=== PATIENT | female | born 1980 | race Caucasian/White ===

== ENCOUNTER 2017-01-05 09:49 | Outpatient (CLI) | payer BC, OTHER ==
[~2017-01-05 09:49] MED LIST: ALPR0.5T PO; ATOR20TA PO; LOSA50TA3 PO; PANT40TA2 PO
[2017-01-05 10:50] LABS: BASOPHILS % (AUTO) 0.4 % (0.0-2.0); EOSINOPHILS # (AUTO) 0.1 K/uL (0.0-0.7); HEMATOCRIT 40.2 % (37-47); HEMOGLOBIN 13.7 G/DL (12.0-16.0); LYMPHOCYTES # (AUTO) 2.2 K/UL (0.8-4.8); LYMPHOCYTES % (AUTO) 34.9 % (20.5-51.5); MEAN CORPUSCULAR HEMOGLOBIN 29.8 UUG (27.0-31.0); MEAN CORPUSCULAR HGB CONC 34 g/dL (32.0-37.0); MEAN CORPUSCULAR VOLUME 87.9 FL (81.0-99.0); MONOCYTES # (AUTO) 0.4 K/UL (0.1-1.30); MONOCYTES % (AUTO) 6.3 % (0.0-11.0); NEUTROPHILS # (AUTO) 3.6 K/UL (1.8-8.9); NEUTROPHILS % (AUTO) 57.4 % (38.5-71.5); PLATELET COUNT (AUTO) 232 K/UL (150-450); RED BLOOD CELL COUNT(AUTO) 4.58 MIL/UL (4.2-5.4); WHITE BLOOD COUNT (AUTO) 6.3 K/UL (4.0-11.2)
[2017-01-05 10:54] LABS: THYROID STIMULATING HORMONE 1.439 mIU/mL (0.358-3.740)
[2017-01-05 11:13] LABS: BILIRUBIN,TOTAL 0.5 mg/dL (0.2-1.0); CREATININE 0.8 mg/dL (0.6-1.3); POTASSIUM 3.7 mmol/L (3.5-5.1); TOTAL PROTEIN, SERUM 7.9 g/dL (6.4-8.2); URIC ACID 5.8 mg/dL (2.6-6.0)
[2017-01-05 11:44] LABS: *BILIRUBIN,URIN NEGATIVE (NEGATIVE); *BLOOD, URINE NEGATIVE (NEGATIVE); *CLARITY,URINE CLEAR (CLEAR); *COLOR,URINE YELLOW (YELLOW); *KETONES,URINE NEGATIVE (NEGATIVE); *PROTEIN,URINE NEGATIVE (NEGATIVE); *UROBILINOGEN,URINE 0.2 E.U./dl (NORMAL); LEUKOCYTE ESTERASE ,URINE NEGATIVE (NEGATIVE); NITRITE, URINE NEGATIVE (NEGATIVE); UGLUCOSE NEGATIVE (NEGATIVE)
[2017-01-05 12:05] LABS: BACTERIA,URINE NONE SEEN /HPF (NONE SEEN); RBC,URINE NONE SEEN /HPF (0-3); SQUAMOUS EPITHELIAL CELL,UR FEW /HPF (NONE SEEN); WBC,URINE NONE SEEN /HPF (0-3)
== END 2017-01-05 23:59 | disposition home or self-care (01) ==
LOC: LAB 09:49
PROVIDERS: ATTEND Internal Medicine
DX: Z00.01 Encounter for general adult medical examination with abnormal findings (principal); E78.5 Hyperlipidemia, unspecified; R79.89 Other specified abnormal findings of blood chemistry
CPT/HCPCS: 36415; 82306; 82746; 83550; 84443; 84550; 85025

== ENCOUNTER 2017-03-13 09:47 | Inpatient (IN) | payer BC, OTHER ==
[~2017-03-13] VITALS: Ht 167.6 cm; Wt 98.9 kg
[2017-03-13] MEDS ORDERED: SERT50TA PO (10:04)
[2017-03-13 10:15] LABS: BASOPHILS % (AUTO) 0.3 % (0.0-2.0); EOSINOPHILS # (AUTO) 0.1 K/uL (0.0-0.7); EOSINOPHILS % (AUTO) 0.6 % (0.0-7.0); HEMATOCRIT 37.6 % (37-47); HEMOGLOBIN 12.8 G/DL (12.0-16.0); LYMPHOCYTES % (AUTO) 22.1 % (20.5-51.5); MEAN CORPUSCULAR HEMOGLOBIN 29.9 UUG (27.0-31.0); MEAN CORPUSCULAR HGB CONC 34 g/dL (32.0-37.0); MEAN CORPUSCULAR VOLUME 87.7 FL (81.0-99.0); MONOCYTES # (AUTO) 0.4 K/UL (0.1-1.30); MONOCYTES % (AUTO) 4.8 % (0.0-11.0); NEUTROPHILS # (AUTO) 6.6 K/UL (1.8-8.9); NEUTROPHILS % (AUTO) 72.2 % (38.5-71.5); PLATELET COUNT (AUTO) 224 K/UL (150-450); RED BLOOD CELL COUNT(AUTO) 4.29 MIL/UL (4.2-5.4); WHITE BLOOD COUNT (AUTO) 9.1 K/UL (4.0-11.2)
[2017-03-13 10:21] LABS: *BILIRUBIN,URIN 1+ (NEGATIVE); *BLOOD, URINE Trace-intact (NEGATIVE); *CLARITY,URINE CLOUDY (CLEAR); *COLOR,URINE YELLOW (YELLOW); *KETONES,URINE NEGATIVE (NEGATIVE); *PROTEIN,URINE 1+ (NEGATIVE); LEUKOCYTE ESTERASE ,URINE NEGATIVE (NEGATIVE); NITRITE, URINE NEGATIVE (NEGATIVE); PH,URINE 6.5 (5.0-8.0); UGLUCOSE NEGATIVE (NEGATIVE)
[2017-03-13 10:28] LABS: CREATININE 0.8 mg/dL (0.6-1.3); POTASSIUM 3.3 mmol/L (3.5-5.1)
[2017-03-13 10:30] LABS: BACTERIA,URINE FEW /HPF (NONE SEEN)
[2017-03-13 10:31] LABS: MUCUS,URINE MODERATE /LPF (0-FEW); SQUAMOUS EPITHELIAL CELL,UR MODERATE /HPF (NONE SEEN)
[2017-03-13 10:34] LABS: BILIRUBIN,DIRECT 0.1 mg/dL (0.0-0.2); BILIRUBIN,TOTAL 0.6 mg/dL (0.2-1.0); TOTAL PROTEIN, SERUM 7.7 g/dL (6.4-8.2)
[2017-03-13 11:50] VITALS: BP 123/82
[2017-03-13 15:35] VITALS: BP 116/64
[2017-03-13 20:32] VITALS: BP 116/75
[2017-03-14 04:00] VITALS: BP 126/74
[2017-03-14 06:53] LABS: BASOPHILS % (AUTO) 0.5 % (0.0-2.0); EOSINOPHILS # (AUTO) 0.1 K/uL (0.0-0.7); HEMATOCRIT 34.3 % (37-47); HEMOGLOBIN 11.9 G/DL (12.0-16.0); LYMPHOCYTES # (AUTO) 1.8 K/UL (0.8-4.8); LYMPHOCYTES % (AUTO) 27.9 % (20.5-51.5); MEAN CORPUSCULAR HEMOGLOBIN 30.5 UUG (27.0-31.0); MEAN CORPUSCULAR HGB CONC 35 g/dL (32.0-37.0); MEAN CORPUSCULAR VOLUME 87.9 FL (81.0-99.0); MONOCYTES # (AUTO) 0.3 K/UL (0.1-1.30); MONOCYTES % (AUTO) 5.4 % (0.0-11.0); NEUTROPHILS # (AUTO) 4.2 K/UL (1.8-8.9); NEUTROPHILS % (AUTO) 65.2 % (38.5-71.5); PLATELET COUNT (AUTO) 209 K/UL (150-450); RED BLOOD CELL COUNT(AUTO) 3.91 MIL/UL (4.2-5.4); WHITE BLOOD COUNT (AUTO) 6.4 K/UL (4.0-11.2)
[2017-03-14 07:14] LABS: BILIRUBIN,TOTAL 0.6 mg/dL (0.2-1.0); CREATININE 0.9 mg/dL (0.6-1.3); MAGNESIUM 1.7 mg/dL (1.8-2.4); PHOSPHOROUS 3.5 mg/dL (2.5-4.9); POTASSIUM 3.4 mmol/L (3.5-5.1); TOTAL PROTEIN, SERUM 6.7 g/dL (6.4-8.2)
[2017-03-14 07:18] LABS: THYROID STIMULATING HORMONE 1.535 mIU/mL (0.358-3.740)
[2017-03-14 08:38] VITALS: BP 133/85
[2017-03-14 16:19] VITALS: BP 111/67
[2017-03-14 18:10] VITALS: BP 113/72
[2017-03-14 18:50] VITALS: BP 119/75
[2017-03-14 20:36] VITALS: BP 110/69
[2017-03-15] VITALS: BP 133/82
[2017-03-15 05:55] VITALS: BP 115/76
[2017-03-15 07:55] LABS: BASOPHILS % (AUTO) 0.4 % (0.0-2.0); EOSINOPHILS % (AUTO) 0.4 % (0.0-7.0); HEMATOCRIT 35.2 % (37-47); HEMOGLOBIN 12.2 G/DL (12.0-16.0); LYMPHOCYTES # (AUTO) 1.7 K/UL (0.8-4.8); LYMPHOCYTES % (AUTO) 22.1 % (20.5-51.5); MEAN CORPUSCULAR HEMOGLOBIN 30.6 UUG (27.0-31.0); MEAN CORPUSCULAR HGB CONC 35 g/dL (32.0-37.0); MEAN CORPUSCULAR VOLUME 88.5 FL (81.0-99.0); MONOCYTES # (AUTO) 0.5 K/UL (0.1-1.30); NEUTROPHILS # (AUTO) 5.5 K/UL (1.8-8.9); NEUTROPHILS % (AUTO) 71.1 % (38.5-71.5); PLATELET COUNT (AUTO) 235 K/UL (150-450); RED BLOOD CELL COUNT(AUTO) 3.98 MIL/UL (4.2-5.4); WHITE BLOOD COUNT (AUTO) 7.7 K/UL (4.0-11.2)
[2017-03-15 08:04] LABS: BILIRUBIN,TOTAL 0.4 mg/dL (0.2-1.0); CREATININE 0.8 mg/dL (0.6-1.3); PHOSPHOROUS 3.1 mg/dL (2.5-4.9); POTASSIUM 3.6 mmol/L (3.5-5.1)
[2017-03-15 11:43] VITALS: BP 111/67
[2017-03-15 16:20] VITALS: BP 133/83
[2017-03-15 20:00] VITALS: BP 141/79
[2017-03-16 05:55] VITALS: BP 105/76
[2017-03-16 07:47] LABS: BASOPHILS % (AUTO) 0.5 % (0.0-2.0); EOSINOPHILS % (AUTO) 0.7 % (0.0-7.0); HEMATOCRIT 33.4 % (37-47); HEMOGLOBIN 11.6 G/DL (12.0-16.0); LYMPHOCYTES # (AUTO) 1.8 K/UL (0.8-4.8); LYMPHOCYTES % (AUTO) 33.3 % (20.5-51.5); MEAN CORPUSCULAR HEMOGLOBIN 30.9 UUG (27.0-31.0); MEAN CORPUSCULAR HGB CONC 35 g/dL (32.0-37.0); MEAN CORPUSCULAR VOLUME 88.9 FL (81.0-99.0); MONOCYTES # (AUTO) 0.3 K/UL (0.1-1.30); MONOCYTES % (AUTO) 6.2 % (0.0-11.0); NEUTROPHILS # (AUTO) 3.4 K/UL (1.8-8.9); NEUTROPHILS % (AUTO) 59.3 % (38.5-71.5); PLATELET COUNT (AUTO) 209 K/UL (150-450); RED BLOOD CELL COUNT(AUTO) 3.75 MIL/UL (4.2-5.4); WHITE BLOOD COUNT (AUTO) 5.5 K/UL (4.0-11.2)
[2017-03-16 08:01] LABS: BILIRUBIN,TOTAL 0.4 mg/dL (0.2-1.0); CREATININE 0.8 mg/dL (0.6-1.3); PHOSPHOROUS 3.4 mg/dL (2.5-4.9); POTASSIUM 3.5 mmol/L (3.5-5.1); TOTAL PROTEIN, SERUM 6.7 g/dL (6.4-8.2)
[2017-03-16 08:08] LABS: MAGNESIUM 1.7 mg/dL (1.8-2.4)
[2017-03-16 13:00] VITALS: BP 107/68
[2017-03-16 16:08] VITALS: BP 113/77
[2017-03-16 20:00] VITALS: BP 106/68
[2017-03-17 06:45] VITALS: BP 114/74
[2017-03-17 07:16] LABS: BASOPHILS % (AUTO) 0.4 % (0.0-2.0); EOSINOPHILS # (AUTO) 0.1 K/uL (0.0-0.7); EOSINOPHILS % (AUTO) 1.2 % (0.0-7.0); HEMATOCRIT 35.1 % (37-47); HEMOGLOBIN 11.8 G/DL (12.0-16.0); LYMPHOCYTES # (AUTO) 2.1 K/UL (0.8-4.8); MEAN CORPUSCULAR HGB CONC 34 g/dL (32.0-37.0); MEAN CORPUSCULAR VOLUME 89.2 FL (81.0-99.0); MONOCYTES # (AUTO) 0.4 K/UL (0.1-1.30); MONOCYTES % (AUTO) 6.2 % (0.0-11.0); NEUTROPHILS # (AUTO) 3.5 K/UL (1.8-8.9); NEUTROPHILS % (AUTO) 58.2 % (38.5-71.5); PLATELET COUNT (AUTO) 242 K/UL (150-450); RED BLOOD CELL COUNT(AUTO) 3.94 MIL/UL (4.2-5.4); WHITE BLOOD COUNT (AUTO) 6.1 K/UL (4.0-11.2)
[2017-03-17 08:16] LABS: BILIRUBIN,TOTAL 0.5 mg/dL (0.2-1.0); CREATININE 0.8 mg/dL (0.6-1.3); MAGNESIUM 1.8 mg/dL (1.8-2.4); PHOSPHOROUS 3.9 mg/dL (2.5-4.9); POTASSIUM 3.6 mmol/L (3.5-5.1); TOTAL PROTEIN, SERUM 6.8 g/dL (6.4-8.2)
[2017-03-17 11:06] VITALS: BP 114/66
[2017-03-17 15:33] VITALS: BP 112/70
[2017-03-17 20:00] VITALS: BP 127/69
[2017-03-18 04:00] VITALS: BP 133/85
[2017-03-18 11:36] VITALS: BP 120/72
[2017-03-18 15:27] VITALS: BP 113/70
[2017-03-18 20:27] VITALS: BP 114/83
[2017-03-19 06:00] VITALS: BP 135/88
[2017-03-19 06:34] LABS: BASOPHILS % (AUTO) 0.3 % (0.0-2.0); EOSINOPHILS # (AUTO) 0.1 K/uL (0.0-0.7); HEMOGLOBIN 12.2 G/DL (12.0-16.0); LYMPHOCYTES # (AUTO) 1.8 K/UL (0.8-4.8); LYMPHOCYTES % (AUTO) 33.2 % (20.5-51.5); MEAN CORPUSCULAR HEMOGLOBIN 30.1 UUG (27.0-31.0); MEAN CORPUSCULAR HGB CONC 34 g/dL (32.0-37.0); MEAN CORPUSCULAR VOLUME 88.8 FL (81.0-99.0); MONOCYTES # (AUTO) 0.4 K/UL (0.1-1.30); MONOCYTES % (AUTO) 7.1 % (0.0-11.0); NEUTROPHILS # (AUTO) 3.2 K/UL (1.8-8.9); NEUTROPHILS % (AUTO) 57.4 % (38.5-71.5); PLATELET COUNT (AUTO) 265 K/UL (150-450); RED BLOOD CELL COUNT(AUTO) 4.05 MIL/UL (4.2-5.4); WHITE BLOOD COUNT (AUTO) 5.5 K/UL (4.0-11.2)
[2017-03-19 07:09] LABS: BILIRUBIN,TOTAL 0.6 mg/dL (0.2-1.0); CREATININE 0.9 mg/dL (0.6-1.3); MAGNESIUM 1.9 mg/dL (1.8-2.4); PHOSPHOROUS 4.3 mg/dL (2.5-4.9); POTASSIUM 3.9 mmol/L (3.5-5.1); TOTAL PROTEIN, SERUM 7.2 g/dL (6.4-8.2)
[2017-03-19 11:33] VITALS: BP 125/82
[2017-03-19] MEDS ORDERED: OXYC-133 PO (12:21)
[2017-03-19] MEDS ORDERED: SIME80TA45 PO (12:21)
[2017-03-19] MEDS ORDERED: ONDA4TAB5 PO (12:44)
== END 2017-03-19 12:58 | disposition home or self-care (01) | DRG 419 ==
LOC: ER 09:47 → MED 11:21
PROVIDERS: ADMIT Internal Medicine; ATTEND Internal Medicine
PROC: 0DB98ZX Excision of Duodenum, Via Natural or Artificial Opening Endoscopic, Diagnostic (ICD-10-PCS; 2017-03-14)
PROC: 0DB78ZX Excision of Stomach, Pylorus, Via Natural or Artificial Opening Endoscopic, Diagnostic (ICD-10-PCS; 2017-03-14)
PROC: 0FT44ZZ Resection of Gallbladder, Percutaneous Endoscopic Approach (ICD-10-PCS; principal; 2017-03-14 07:15)
PROC: 0FB04ZX Excision of Liver, Percutaneous Endoscopic Approach, Diagnostic (ICD-10-PCS; principal; 2017-03-14 07:15)
DX: K80.12 Calculus of gallbladder with acute and chronic cholecystitis without obstruction (principal); K76.0 Fatty (change of) liver, not elsewhere classified; E88.09 Other disorders of plasma-protein metabolism, not elsewhere classified; K29.60 Other gastritis without bleeding; K44.9 Diaphragmatic hernia without obstruction or gangrene; E66.01 Morbid (severe) obesity due to excess calories; R16.2 Hepatomegaly with splenomegaly, not elsewhere classified; B96.81 Helicobacter pylori [H. pylori] as the cause of diseases classified elsewhere; K40.90 Unilateral inguinal hernia, without obstruction or gangrene, not specified as recurrent; K21.0 Gastro-esophageal reflux disease with esophagitis; E87.6 Hypokalemia; M51.14 Intervertebral disc disorders with radiculopathy, thoracic region; F41.9 Anxiety disorder, unspecified; Z68.35 Body mass index [BMI] 35.0-35.9, adult; K58.0 Irritable bowel syndrome with diarrhea; K57.90 Diverticulosis of intestine, part unspecified, without perforation or abscess without bleeding; K56.41 Fecal impaction; Z82.49 Family history of ischemic heart disease and other diseases of the circulatory system; Z79.899 Other long term (current) drug therapy; I10 Essential (primary) hypertension
CPT/HCPCS: 36415; 71010; 83605; 83690; 83735; 84100; 84443; 84703; 85025; 85730; 87040; 93005; A4217; A4663; J0330; J0690; J1100; J1170; J1200; J1450; J1885; J1956; J2060; J2270; J2405; J2543; J2710; J3010; J3475; J3480; J3490; J7030; J7050; J7120; L8699; Q9967

== ENCOUNTER 2017-04-11 11:14 | Outpatient (CLI) | payer BC, OTHER ==
[~2017-04-11 11:14] MED LIST changes: -ALPR0.5T PO; -ATOR20TA PO; +ONDA4TAB5 PO; +OXYC-133 PO; +SERT50TA PO; +SIME80TA45 PO
[2017-04-11 11:59] LABS: BASOPHILS % (AUTO) 0.7 % (0.0-2.0); EOSINOPHILS # (AUTO) 0.1 K/uL (0.0-0.7); EOSINOPHILS % (AUTO) 0.9 % (0.0-7.0); HEMATOCRIT 40.4 % (37-47); HEMOGLOBIN 13.3 G/DL (12.0-16.0); LYMPHOCYTES # (AUTO) 2.6 K/UL (0.8-4.8); MEAN CORPUSCULAR HEMOGLOBIN 29.5 UUG (27.0-31.0); MEAN CORPUSCULAR HGB CONC 33 g/dL (32.0-37.0); MEAN CORPUSCULAR VOLUME 89.6 FL (81.0-99.0); MONOCYTES # (AUTO) 0.5 K/UL (0.1-1.30); MONOCYTES % (AUTO) 7.6 % (0.0-11.0); NEUTROPHILS # (AUTO) 3.4 K/UL (1.8-8.9); NEUTROPHILS % (AUTO) 51.8 % (38.5-71.5); PLATELET COUNT (AUTO) 223 K/UL (150-450); RED BLOOD CELL COUNT(AUTO) 4.51 MIL/UL (4.2-5.4); WHITE BLOOD COUNT (AUTO) 6.6 K/UL (4.0-11.2)
[2017-04-11 12:24] LABS: BILIRUBIN,TOTAL 0.4 mg/dL (0.2-1.0); CREATININE 0.7 mg/dL (0.6-1.3); POTASSIUM 4.2 mmol/L (3.5-5.1); TOTAL PROTEIN, SERUM 8.1 g/dL (6.4-8.2)
== END 2017-04-11 23:59 | disposition home or self-care (01) ==
LOC: LAB 11:14
PROVIDERS: ATTEND Surgery
DX: R16.1 Splenomegaly, not elsewhere classified (principal); Z90.49 Acquired absence of other specified parts of digestive tract
CPT/HCPCS: 36415; 76700; 83690; 85025

== ENCOUNTER 2017-06-19 21:53 | Emergency (ER) | payer OTHER ==
[~2017-06-19] VITALS: Ht 167.6 cm; Wt 90.7 kg
--- NOTE | 2017-06-19 22:40 | NUR ---
Patient discharged to home in stable conditon. Written and verbal after care instructions given. Patient verbalizes understanding of instructions.
[2017-06-19 22:48] LABS: BILIRUBIN,DIRECT 0.1 mg/dL (0.0-0.2); BILIRUBIN,TOTAL 0.3 mg/dL (0.2-1.0); TOTAL PROTEIN, SERUM 7.9 g/dL (6.4-8.2)
[2017-06-21 11:48] LABS: HEPATITIS A AB, IgM Negative (Negative); HEPATITIS A AB, TOTAL Negative (Negative); HEPATITIS B SURFACE AB Reactive (.); HEPATITIS B SURFACE AG Negative (Negative)
[2017-06-22 05:06] LABS: HEPATITIS Be ANTIGEN Negative (Negative)
== END 2017-06-19 22:40 | disposition home or self-care (01) ==
LOC: ER 21:54
DX: S61.031A Puncture wound without foreign body of right thumb without damage to nail, initial encounter (principal); I10 Essential (primary) hypertension; Z88.1 Allergy status to other antibiotic agents; K21.9 Gastro-esophageal reflux disease without esophagitis; Z90.49 Acquired absence of other specified parts of digestive tract; W46.0XXA Contact with hypodermic needle, initial encounter; Y92.89 Other specified places as the place of occurrence of the external cause; Y93.89 Activity, other specified; Y99.0 Civilian activity done for income or pay
CPT/HCPCS: 36415; 86704; 86705; 86706; 86708; 86709; 86803; 87340; 87350; 87536; 87806; A4663

== ENCOUNTER 2017-11-14 21:18 | Emergency (ER) | payer BC ==
[~2017-11-14] VITALS: Ht 165.1 cm; Wt 63.5 kg
[~2017-11-14 21:18] MED LIST changes: -ONDA4TAB5 PO; -OXYC-133 PO; -SIME80TA45 PO
--- NOTE | 2017-11-14 21:30 | NUR ---
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 PT STATES SHE TOOK ZOFRAN 4 MG PO AT 1830 TODAY. PT BLOOD SUGAR UPON ARRIVAL WAS 129. NO SOB/CONGESTION NOTED. NO CHEST PAIN NOTED. AAOX4. PT ABLE TO SPEAK IN COMPLETE SENTENCES. SPEECH CLEAR. PT RESPONDS TO VERBAL + TACTILE STIMULI. RESPIRATIONS EVEN + UNLABORED. SA02 99% RA. PT ON MONITOR. NSR. PT RESTING IN BED WAITING FOR MSE. BED IN LOWEST POSITION. WHEELS LOCKED. CALL LIGHT WITHIN REACH. VSS. Addendum: 11/14/17 at 2223 by MARIANNE PT AMBULATES TO ER FROM WORK (2ND FLOOR) ACCOMPANIED BY NURSE EQUIPMENT MONITOR PHOTOTYPESETTING DUE TO FEELINGS OF DIZZINESS, SWEATING, & NAUSEA. PT STATES SHE TOOK ZOFRAN 4 MG PO AT 1830 TODAY. PT BLOOD SUGAR UPON ARRIVAL WAS 129. PT STATES SHE TOOK HER BP AT HOME AROUND 1330 TODAY AND IT WAS 72/40. PT STATES SHE HAS HX OF HTN AND TAKES LOSARTAN 50 MG ONCE A DAY. NO SOB/CONGESTION NOTED. NO CHEST PAIN NOTED. AAOX4. PT ABLE TO SPEAK IN COMPLETE SENTENCES. SPEECH CLEAR. PT RESPONDS TO VERBAL + TACTILE STIMULI. RESPIRATIONS EVEN + UNLABORED. SA02 99% RA. PT ON MONITOR. NSR. PT RESTING IN BED WAITING FOR MSE. BED IN LOWEST POSITION. WHEELS LOCKED. CALL LIGHT WITHIN REACH. VSS.
--- NOTE | 2017-11-14 21:45 | NUR ---
ABILIO CONCEPCION AT BEDSIDE FOR MSE.
--- NOTE | 2017-11-14 21:54 | NUR ---
LAB AT BEDSIDE.
[2017-11-14 22:18] LABS: CREATININE 0.9 mg/dL (0.6-1.3); POTASSIUM 3.8 mmol/L (3.5-5.1)
[2017-11-14 22:20] LABS: EOSINOPHILS % (AUTO) 0.2 % (0.0-7.0); HEMOGLOBIN 12.9 g/dL (10.9-14.3); LYMPHOCYTES # (AUTO) 0.9 K/uL (20.0-40.0); LYMPHOCYTES % (AUTO) 6.9 % (20.5-51.5); MEAN CORPUSCULAR HEMOGLOBIN 30.9 uug (24.7-32.8); MEAN CORPUSCULAR HGB CONC 35 g/dL (32.3-35.6); MEAN CORPUSCULAR VOLUME 88.5 fL (75.5-95.3); MONOCYTES # (AUTO) 0.6 K/uL (2.0-10.0); MONOCYTES % (AUTO) 4.6 % (0.0-11.0); NEUTROPHILS # (AUTO) 11.7 K/uL (1.8-8.9); NEUTROPHILS % (AUTO) 88.3 % (38.5-71.5); PLATELET COUNT (AUTO) 189 K/uL (179-408); RED BLOOD CELL COUNT(AUTO) 4.18 MIL/uL (3.63-4.92); WHITE BLOOD COUNT (AUTO) 13.2 K/uL (3.8-11.8)
[2017-11-14 22:31] LABS: BILIRUBIN,DIRECT 0.2 mg/dL (0.0-0.2); BILIRUBIN,TOTAL 0.8 mg/dL (0.2-1.0); TOTAL PROTEIN, SERUM 7.3 g/dL (6.4-8.2)
--- NOTE | 2017-11-14 22:38 | NUR ---
Patient discharged to home in stable conditon. Written and verbal after care instructions given. Patient verbalizes understanding of instructions. Patient ambulated from ER in steady gait. All belongings taken with patient. VSS.
[2017-11-14 22:40] VITALS: BP 129/78
== END 2017-11-14 22:41 | disposition home or self-care (01) ==
LOC: ER 21:20
DX: R42 Dizziness and giddiness (principal); I10 Essential (primary) hypertension; K21.9 Gastro-esophageal reflux disease without esophagitis; Z88.1 Allergy status to other antibiotic agents; Z90.49 Acquired absence of other specified parts of digestive tract; Z79.899 Other long term (current) drug therapy
CPT/HCPCS: 36415; 70030-TC; 84703; 85025; 85730; 93005; A4663

== ENCOUNTER 2017-12-03 07:47 | Emergency (ER) | payer OTHER ==
[~2017-12-03] VITALS: Ht 167.6 cm; Wt 88.5 kg
[2017-12-03] MEDS ORDERED: PANTOPRAZOLE SOD DR 40 MG TAB (08:02)
--- NOTE | 2017-12-03 08:18 | NUR ---
mse completed, rt index finger needle stick area cleaned with alcohol then bandaid placed to site. pt had labs drawn. pt then d/c'd home, aci given. pt ambulated w/o diff/took all belongings.
[2017-12-03 08:21] VITALS: BP 135/88
[2017-12-05 03:09] LABS: HEPATITIS B SURFACE AB Reactive (.)
== END 2017-12-03 08:22 | disposition home or self-care (01) ==
LOC: ER 07:50
DX: S61.230A Puncture wound without foreign body of right index finger without damage to nail, initial encounter (principal); Z88.8 Allergy status to other drugs, medicaments and biological substances; Z79.899 Other long term (current) drug therapy; W46.0XXA Contact with hypodermic needle, initial encounter; Y93.89 Activity, other specified; Y92.89 Other specified places as the place of occurrence of the external cause; Y99.8 Other external cause status
CPT/HCPCS: 36415; 86704; 86706; 86803; 87806; A4663

== ENCOUNTER → 2018-01-23 | Outpatient (CLI) | payer BC, OTHER ==
[~2018-01-23] MED LIST changes: +PANTOPRAZOLE SOD DR 40 MG TAB
[2018-01-23 08:46] LABS: BASOPHILS % (AUTO) 0.5 % (0.0-2.0); EOSINOPHILS % (AUTO) 0.5 % (0.0-7.0); HEMATOCRIT 39.1 % (31.2-41.9); HEMOGLOBIN 13.6 g/dL (10.9-14.3); LYMPHOCYTES # (AUTO) 3.5 K/uL (20.0-40.0); LYMPHOCYTES % (AUTO) 44.6 % (20.5-51.5); MEAN CORPUSCULAR HEMOGLOBIN 30.5 uug (24.7-32.8); MEAN CORPUSCULAR HGB CONC 35 g/dL (32.3-35.6); MEAN CORPUSCULAR VOLUME 87.9 fL (75.5-95.3); MONOCYTES # (AUTO) 0.5 K/uL (2.0-10.0); MONOCYTES % (AUTO) 6.5 % (0.0-11.0); NEUTROPHILS # (AUTO) 3.7 K/uL (1.8-8.9); NEUTROPHILS % (AUTO) 47.9 % (38.5-71.5); PLATELET COUNT (AUTO) 261 K/uL (179-408); RED BLOOD CELL COUNT(AUTO) 4.45 MIL/uL (3.63-4.92); WHITE BLOOD COUNT (AUTO) 7.8 K/uL (3.8-11.8)
[2018-01-23 08:49] LABS: *BILIRUBIN,URIN NEGATIVE (NEGATIVE); *BLOOD, URINE NEGATIVE (NEGATIVE); *CLARITY,URINE CLEAR (CLEAR); *COLOR,URINE YELLOW (YELLOW); *KETONES,URINE NEGATIVE (NEGATIVE); *PROTEIN,URINE NEGATIVE (NEGATIVE); *UROBILINOGEN,URINE 0.2 E.U./dl (NORMAL); LEUKOCYTE ESTERASE ,URINE NEGATIVE (NEGATIVE); NITRITE, URINE NEGATIVE (NEGATIVE); PH,URINE 5.5 (5.0-8.0); UGLUCOSE NEGATIVE (NEGATIVE)
[2018-01-23 09:07] LABS: THYROID STIMULATING HORMONE 4.339 mIU/mL (0.358-3.740)
[2018-01-23 09:22] LABS: BILIRUBIN,TOTAL 0.9 mg/dL (0.2-1.0); CREATININE 0.9 mg/dL (0.6-1.3); POTASSIUM 4.4 mmol/L (3.5-5.1); TOTAL PROTEIN, SERUM 8.6 g/dL (6.4-8.2)
[2018-01-23 09:33] LABS: BACTERIA,URINE FEW /HPF (NONE SEEN); RBC,URINE 0-3 /HPF (0-3); WBC,URINE 0-3 /HPF (0-3)
[2018-01-23 09:34] LABS: SQUAMOUS EPITHELIAL CELL,UR MODERATE /HPF (NONE SEEN)
== END | disposition home or self-care (01) ==
LOC: LAB 07:49
PROVIDERS: ATTEND Legal Medicine
DX: Z00.00 Encounter for general adult medical examination without abnormal findings (principal)
CPT/HCPCS: 36415; 82306; 82746; 83550; 84443; 85025

== ENCOUNTER 2018-01-27 00:40 | Emergency (ER) | payer BC, OTHER ==
[~2018-01-27] VITALS: Ht 165.1 cm; Wt 83.9 kg
--- NOTE | 2018-01-27 00:50 | NUR ---
PATIENT WAS MSE BY DR DUARTE ROOM 04A. PATIENT A & O X4.
[2018-01-27] MEDS ORDERED: PSEUDOEPHEDRINE HCL 30 MG TABLET PO ONE (01:00)
[2018-01-27] MEDS ORDERED: PSEUDOEPHEDRINE HCL 30 MG TABLET ONE (01:08)
--- NOTE | 2018-01-27 01:13 | NUR ---
Patient discharged to home in stable conditon. Written and verbal after care instructions given. Patient verbalizes understanding of instructions.
[2018-01-27 01:18] VITALS: BP 137/88
== END 2018-01-27 01:20 | disposition home or self-care (01) ==
LOC: ER 00:41
DX: J40 Bronchitis, not specified as acute or chronic (principal); J32.9 Chronic sinusitis, unspecified; J02.9 Acute pharyngitis, unspecified; I10 Essential (primary) hypertension; Z90.49 Acquired absence of other specified parts of digestive tract; Z88.8 Allergy status to other drugs, medicaments and biological substances; Z79.899 Other long term (current) drug therapy
CPT/HCPCS: 99283; A4663

== ENCOUNTER 2018-04-21 18:50 | Emergency (ER) | payer BC, OTHER ==
[~2018-04-21] VITALS: Ht 165.1 cm; Wt 83.9 kg
--- NOTE | 2018-04-21 19:01 | NUR ---
RECEIVED SHIFT REPORT FROM CHARLIE SMYTH. PT SITTING IN BED COMFORTABLY. DENIES PAIN, C/P, SOB, N/V/D, DIZZINESS, HEADACHE. PT'S LEFT EYE IS EDEMATOUS AND RED IN APPEARANCE.
--- NOTE | 2018-04-21 19:07 | NUR ---
ABILIO CONCEPCION AT BEDSIDE FOR PT UPDATE.
--- NOTE | 2018-04-21 19:09 | NUR ---
Patient discharged to home in stable conditon. Written and verbal after care instructions given. Patient verbalizes understanding of instructions.
== END 2018-04-21 19:11 | disposition home or self-care (01) ==
LOC: ER 18:50
DX: Z00.00 Encounter for general adult medical examination without abnormal findings (principal); H57.89 Other specified disorders of eye and adnexa; I10 Essential (primary) hypertension; Z90.49 Acquired absence of other specified parts of digestive tract; Z88.1 Allergy status to other antibiotic agents
CPT/HCPCS: A4663

== ENCOUNTER 2018-12-20 17:58 | Outpatient (CLI) | payer BC, OTHER ==
[2018-12-20 18:27] LABS: *BILIRUBIN,URIN NEGATIVE (NEGATIVE); *COLOR,URINE YELLOW (YELLOW); *KETONES,URINE NEGATIVE (NEGATIVE); *UROBILINOGEN,URINE 0.2 E.U./dl (NORMAL); LEUKOCYTE ESTERASE ,URINE NEGATIVE (NEGATIVE); NITRITE, URINE NEGATIVE (NEGATIVE); UGLUCOSE NEGATIVE (NEGATIVE)
[2018-12-20 18:35] LABS: BASOPHILS % (AUTO) 0.7 % (0.0-2.0); EOSINOPHILS % (AUTO) 0.8 % (0.0-7.0); HEMATOCRIT 40.1 % (31.2-41.9); HEMOGLOBIN 13.7 g/dL (10.9-14.3); LYMPHOCYTES # (AUTO) 2.1 K/uL (20.0-40.0); LYMPHOCYTES % (AUTO) 35.2 % (20.5-51.5); MEAN CORPUSCULAR HEMOGLOBIN 30.4 uug (24.7-32.8); MEAN CORPUSCULAR HGB CONC 34 g/dL (32.3-35.6); MEAN CORPUSCULAR VOLUME 88.6 fL (75.5-95.3); MONOCYTES # (AUTO) 0.4 K/uL (2.0-10.0); MONOCYTES % (AUTO) 6.7 % (0.0-11.0); NEUTROPHILS # (AUTO) 3.4 K/uL (1.8-8.9); NEUTROPHILS % (AUTO) 56.6 % (38.5-71.5); PLATELET COUNT (AUTO) 234 K/uL (179-408); RED BLOOD CELL COUNT(AUTO) 4.52 MIL/uL (3.63-4.92)
[2018-12-20 18:42] LABS: *BLOOD, URINE TRACE (NEGATIVE); *CLARITY,URINE SLIGHTLY HAZY (CLEAR)
[2018-12-20 18:43] LABS: BACTERIA,URINE FEW /HPF (NONE SEEN); MUCUS,URINE MANY /LPF (0-FEW); SQUAMOUS EPITHELIAL CELL,UR MODERATE /HPF (NONE SEEN); WBC,URINE 0-3 /HPF (0-3)
[2018-12-20 19:06] LABS: BILIRUBIN,TOTAL 0.8 mg/dL (0.2-1.0); CREATININE 0.8 mg/dL (0.6-1.3); TOTAL PROTEIN, SERUM 7.9 g/dL (6.4-8.2); URIC ACID 5.1 mg/dL (2.6-6.0)
[2018-12-20 19:28] LABS: POTASSIUM 3.7 mmol/L (3.5-5.1)
[2018-12-20 20:04] LABS: THYROID STIMULATING HORMONE 2.233 mIU/mL (0.358-3.740)
[2018-12-25 12:10] LABS: *VITAMIN D 25-OH VIT D 35 ng/mL (.); *VITAMIN D 25-OH, D2 <1.0 ng/mL (.); *VITAMIN D 25-OH, D3 35 ng/mL (.)
== END 2018-12-20 23:59 | disposition home or self-care (01) ==
LOC: LAB 17:58
PROVIDERS: ATTEND Legal Medicine
DX: Z00.00 Encounter for general adult medical examination without abnormal findings (principal)
CPT/HCPCS: 36415; 83550; 84443; 84550; 85025

== ENCOUNTER 2019-04-08 10:00 | Emergency (ER) | payer BC, OTHER ==
[~2019-04-08] VITALS: Ht 165.1 cm; Wt 81.6 kg
--- NOTE | 2019-04-08 10:14 | NUR ---
Dr Soto is@bedside doing the MSE.
--- NOTE | 2019-04-08 10:27 | NUR ---
Patient discharged to home in stable conditon with brisk steady gait. Written and verbal after care instructions given to patient. Patient verbalizes understanding of instructions.
== END 2019-04-08 10:27 | disposition home or self-care (01) ==
LOC: ER 10:00
DX: J02.9 Acute pharyngitis, unspecified (principal); I10 Essential (primary) hypertension; Z90.49 Acquired absence of other specified parts of digestive tract; Z79.899 Other long term (current) drug therapy
CPT/HCPCS: 36415; 86403; A4663

== ENCOUNTER 2019-05-10 02:19 | Emergency (ER) | payer BC, OTHER ==
[~2019-05-10] VITALS: Ht 167.6 cm; Wt 86.2 kg
--- NOTE | 2019-05-10 02:30 | NUR ---
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 Placed in room 1b.
[2019-05-10] MEDS ORDERED: ONDANSETRON 4 MG/2 ML VIAL IV ONE (02:45)
[2019-05-10] MEDS ORDERED: PANTOPRAZOLE SODIUM 40 MG VIAL IV ONE (02:45)
[2019-05-10] MEDS ORDERED: IV NORMAL SALINE 1000 ML BAG IV ONE ×2 (02:45→04:00)
[2019-05-10] MEDS ORDERED: PANTOPRAZOLE SODIUM 40 MG VIAL ONE (02:46)
[2019-05-10] MEDS ORDERED: ONDANSETRON 4 MG/2 ML VIAL ONE (02:46)
[2019-05-10 02:54] LABS: BASOPHILS % (AUTO) 0.3 % (0.0-2.0); EOSINOPHILS % (AUTO) 0.2 % (0.0-7.0); HEMATOCRIT 42.3 % (31.2-41.9); HEMOGLOBIN 14.5 g/dL (10.9-14.3); LYMPHOCYTES # (AUTO) 1.2 K/uL (20.0-40.0); LYMPHOCYTES % (AUTO) 9.5 % (20.5-51.5); MEAN CORPUSCULAR HEMOGLOBIN 30.2 uug (24.7-32.8); MEAN CORPUSCULAR HGB CONC 34 g/dL (32.3-35.6); MEAN CORPUSCULAR VOLUME 87.8 fL (75.5-95.3); MONOCYTES # (AUTO) 0.5 K/uL (2.0-10.0); MONOCYTES % (AUTO) 3.5 % (0.0-11.0); NEUTROPHILS # (AUTO) 11.2 K/uL (1.8-8.9); NEUTROPHILS % (AUTO) 86.5 % (38.5-71.5); PLATELET COUNT (AUTO) 247 K/uL (179-408); RED BLOOD CELL COUNT(AUTO) 4.82 MIL/uL (3.63-4.92); WHITE BLOOD COUNT (AUTO) 12.9 K/uL (3.8-11.8)
[2019-05-10 02:56] LABS: CREATININE 0.9 mg/dL (0.6-1.3); POTASSIUM 3.1 mmol/L (3.5-5.1)
[2019-05-10 03:01] LABS: BILIRUBIN,DIRECT 0.2 mg/dL (0.0-0.2); BILIRUBIN,TOTAL 0.6 mg/dL (0.2-1.0)
[2019-05-10] MEDS ORDERED: POTASSIUM CHLORIDE 20 MEQ TAB.PRT.SR ONE (03:07)
[2019-05-10] MEDS ORDERED: POTASSIUM CHLORIDE 20 MEQ TAB.PRT.SR PO ONE (03:15)
[2019-05-10] MEDS ORDERED: MAGNESIUM SULFATE/D5W 100 ML ONE (03:54)
[2019-05-10] MEDS: MAGNESIUM SULFATE/D5W 100 ML IV SCH (04:00)
--- NOTE | 2019-05-10 04:04 | NUR ---
Patient resting comfortable on gurny with no distress noted.
--- NOTE | 2019-05-10 06:00 | NUR ---
Patient states "I feel better now."
--- NOTE | 2019-05-10 06:40 | NUR ---
IV removed. Catheter intact and site benign. Pressure and 4x4 gauze applied to site. No bleeding noted.
--- NOTE | 2019-05-10 06:43 | NUR ---
Patient discharged to home in stable conditon. Written and verbal after care instructions given. Patient verbalizes understanding of instructions. Walked out of ER with no distress noted.
[2019-05-10 06:44] VITALS: BP 118/72
== END 2019-05-10 06:44 | disposition home or self-care (01) ==
LOC: ER 02:21
DX: K21.9 Gastro-esophageal reflux disease without esophagitis (principal); R07.9 Chest pain, unspecified; R00.0 Tachycardia, unspecified; E03.9 Hypothyroidism, unspecified; E87.6 Hypokalemia; E83.42 Hypomagnesemia; I10 Essential (primary) hypertension; Z90.49 Acquired absence of other specified parts of digestive tract; Z79.899 Other long term (current) drug therapy
CPT/HCPCS: 36415; 71045; 80048; 80076; 83735; 84443; 84484 ×2; 85025; 85379; 93005 ×2; 96361; 96365; 96375; 99284; C9113; J2405; J3475; 70030-TC; A4663; J7030

== ENCOUNTER 2019-11-03 10:45 | Outpatient (CLI) | payer BC, OTHER ==
[2019-11-03 11:45] LABS: BASOPHILS % (AUTO) 0.3 % (0.0-2.0); EOSINOPHILS # (AUTO) 0.1 K/uL (0.0-0.7); HEMATOCRIT 38.8 % (31.2-41.9); LYMPHOCYTES # (AUTO) 2.2 K/uL (20.0-40.0); LYMPHOCYTES % (AUTO) 32.5 % (20.5-51.5); MEAN CORPUSCULAR HEMOGLOBIN 30.4 uug (24.7-32.8); MEAN CORPUSCULAR HGB CONC 34 g/dL (32.3-35.6); MEAN CORPUSCULAR VOLUME 90.5 fL (75.5-95.3); MONOCYTES # (AUTO) 0.4 K/uL (2.0-10.0); MONOCYTES % (AUTO) 5.7 % (0.0-11.0); NEUTROPHILS % (AUTO) 60.5 % (38.5-71.5); PLATELET COUNT (AUTO) 240 K/uL (179-408); RED BLOOD CELL COUNT(AUTO) 4.29 MIL/uL (3.63-4.92); WHITE BLOOD COUNT (AUTO) 6.7 K/uL (3.8-11.8)
[2019-11-03 12:12] LABS: BILIRUBIN,TOTAL 0.6 mg/dL (0.2-1.0); CREATININE 0.9 mg/dL (0.6-1.3); POTASSIUM 3.9 mmol/L (3.5-5.1); TOTAL PROTEIN, SERUM 7.8 g/dL (6.4-8.2)
[2019-11-03 12:33] LABS: THYROID STIMULATING HORMONE 1.74 mIU/mL (0.358-3.740)
[2019-11-04 08:08] LABS: THYROID PEROXIDASE (TPO) AB <6 IU/mL (0-34)
== END 2019-11-03 23:59 | disposition home or self-care (01) ==
LOC: LAB 10:45
PROVIDERS: ATTEND Legal Medicine
DX: I10 Essential (primary) hypertension (principal); E11.9 Type 2 diabetes mellitus without complications; D64.9 Anemia, unspecified; E03.9 Hypothyroidism, unspecified; E78.00 Pure hypercholesterolemia, unspecified; E55.9 Vitamin D deficiency, unspecified; Z00.00 Encounter for general adult medical examination without abnormal findings
CPT/HCPCS: 36415; 82306; 83550; 84443; 85025

== ENCOUNTER 2020-09-02 14:43 | Outpatient (CLI) | payer BC, OTHER | END 2020-09-02 23:59 | disposition home or self-care (01) | LOC: RAD 14:43 | PROVIDERS: ATTEND Legal Medicine | DX: M71.21 Synovial cyst of popliteal space [Baker], right knee (principal) ==

== ENCOUNTER 2021-06-14 04:18 | Outpatient (CLI) | payer BC, OTHER ==
[2021-06-14 05:18] LABS: HEMATOCRIT 37.7 % (31.2-41.9); MEAN CORPUSCULAR HEMOGLOBIN 30.3 uug (24.7-32.8); MEAN CORPUSCULAR VOLUME 86.8 fL (75.5-95.3); PLATELET COUNT (AUTO) 251 K/uL (179-408)
[2021-06-14 05:42] LABS: BILIRUBIN,TOTAL 0.4 mg/dL (0.2-1.0); CREATININE 1.1 mg/dL (0.6-1.3); POTASSIUM 3.6 mmol/L (3.5-5.1); TOTAL PROTEIN, SERUM 8.3 g/dL (6.4-8.2)
== END 2021-06-14 23:59 | disposition home or self-care (01) ==
LOC: LAB 04:18
PROVIDERS: ATTEND Internal Medicine Gastroenterology
DX: K21.9 Gastro-esophageal reflux disease without esophagitis (principal); A04.8 Other specified bacterial intestinal infections
CPT/HCPCS: 36415; 85025

== ENCOUNTER 2021-06-17 06:35 | Outpatient (CLI) | payer BC, OTHER | END 2021-06-17 23:59 | disposition home or self-care (01) | LOC: LAB 06:35 | PROVIDERS: ATTEND Internal Medicine Gastroenterology | DX: Z01.812 Encounter for preprocedural laboratory examination (principal); Z20.822 Contact with and (suspected) exposure to COVID-19 ==

== ENCOUNTER 2021-06-20 12:00 | Day surgery (SDC) | payer BC, OTHER ==
[2021-06-20] MEDS ORDERED: LIDOCAINE-MPF 2% 5 ML VIAL IJ ONE (12:01)
[2021-06-20] MEDS ORDERED: PROPOFOL 200 MG/20 ML BOTTLE IV ONE (12:01)
[2021-06-20] MEDS ORDERED: PROPOFOL 200 MG/20 ML BOTTLE ONE (14:23)
== END 2021-06-20 15:53 | disposition home or self-care (01) ==
LOC: DS 12:00
PROVIDERS: ATTEND Internal Medicine Gastroenterology
DX: R10.13 Epigastric pain (principal); K29.50 Unspecified chronic gastritis without bleeding; K31.89 Other diseases of stomach and duodenum; K21.9 Gastro-esophageal reflux disease without esophagitis; A04.8 Other specified bacterial intestinal infections; I10 Essential (primary) hypertension; J44.9 Chronic obstructive pulmonary disease, unspecified; E78.00 Pure hypercholesterolemia, unspecified; Z80.0 Family history of malignant neoplasm of digestive organs; Z90.49 Acquired absence of other specified parts of digestive tract; Z82.49 Family history of ischemic heart disease and other diseases of the circulatory system; Z79.899 Other long term (current) drug therapy; Z98.890 Other specified postprocedural states
CPT/HCPCS: 36415; 43239; 84702; 85730; 88305; 88313; 88342; J3490; J7120; A4217; A4663

== ENCOUNTER 2021-12-26 10:42 | Outpatient (CLI) | payer BC, OTHER ==
[2021-12-26 11:28] LABS: HEMATOCRIT 37.6 % (31.2-41.9); MEAN CORPUSCULAR HEMOGLOBIN 30.9 uug (24.7-32.8); MEAN CORPUSCULAR VOLUME 86.2 fL (75.5-95.3); PLATELET COUNT (AUTO) 217 K/uL (179-408)
[2021-12-26 11:30] LABS: *BILIRUBIN,URIN NEGATIVE (NEGATIVE); *BLOOD, URINE 1+ (NEGATIVE); *CLARITY,URINE CLEAR (CLEAR); *COLOR,URINE YELLOW (YELLOW); *KETONES,URINE NEGATIVE (NEGATIVE); *UROBILINOGEN,URINE 0.2 E.U./dl (NORMAL); LEUKOCYTE ESTERASE ,URINE NEGATIVE (NEGATIVE); NITRITE, URINE NEGATIVE (NEGATIVE); PH,URINE 5.5 (5.0-8.0); UGLUCOSE NEGATIVE (NEGATIVE)
[2021-12-26 11:54] LABS: BILIRUBIN,TOTAL 0.4 mg/dL (0.2-1.0); CREATININE 0.8 mg/dL (0.6-1.3); POTASSIUM 4.1 mmol/L (3.5-5.1)
[2021-12-26 12:43] LABS: URIC ACID 5.6 mg/dL (2.6-6.0)
[2021-12-26 12:47] LABS: THYROID STIMULATING HORMONE 1.387 mIU/mL (0.358-3.740)
[2021-12-26 13:12] LABS: RBC,URINE 20-50 /HPF (0-3)
[2021-12-26 13:13] LABS: BACTERIA,URINE FEW /HPF (NONE SEEN); SQUAMOUS EPITHELIAL CELL,UR FEW /HPF (NONE SEEN)
--- NOTE | 2021-12-27 08:23 | NUR ---
ALL REPORTS WERE FAXED TO THE PATIENT'S DOCTOR THIS MORNING. A CD WITH ALL THE IMAGES FROM HER X-RAYS, WAS ALSO MADE UPON HER REQUEST. ETTA ALBARRAN
== END 2021-12-26 23:59 | disposition home or self-care (01) ==
LOC: LAB 10:42
PROVIDERS: ATTEND Legal Medicine
DX: Z00.00 Encounter for general adult medical examination without abnormal findings (principal); E78.00 Pure hypercholesterolemia, unspecified; E11.9 Type 2 diabetes mellitus without complications; E03.9 Hypothyroidism, unspecified; E55.9 Vitamin D deficiency, unspecified; D64.9 Anemia, unspecified; M47.816 Spondylosis without myelopathy or radiculopathy, lumbar region; M51.87 Other intervertebral disc disorders, lumbosacral region; M25.551 Pain in right hip; M54.50 Low back pain, unspecified
CPT/HCPCS: 36415; 72110; 73502; 82306; 82746; 83550; 84443; 84550; 85025; 87086

== ENCOUNTER → 2022-09-13 | Outpatient (CLI) | payer BC, OTHER ==
[2022-09-13 09:36] LABS: HEMATOCRIT 39.9 % (31.2-41.9); MEAN CORPUSCULAR HEMOGLOBIN 30.3 uug (24.7-32.8); MEAN CORPUSCULAR VOLUME 88.3 fL (75.5-95.3); PLATELET COUNT (AUTO) 229 K/uL (179-408)
[2022-09-13 10:05] LABS: THYROID STIMULATING HORMONE 1.07 mIU/mL (0.358-3.740)
[2022-09-13 10:17] LABS: BILIRUBIN,TOTAL 0.5 mg/dL (0.2-1.0); CREATININE 0.7 mg/dL (0.6-1.3); POTASSIUM 3.9 mmol/L (3.5-5.1); TOTAL PROTEIN, SERUM 8.3 g/dL (6.4-8.2)
== END | disposition home or self-care (01) ==
LOC: LAB 08:56
PROVIDERS: ATTEND Legal Medicine
DX: Z00.00 Encounter for general adult medical examination without abnormal findings (principal); E11.9 Type 2 diabetes mellitus without complications; E55.9 Vitamin D deficiency, unspecified; E78.00 Pure hypercholesterolemia, unspecified; D64.9 Anemia, unspecified
CPT/HCPCS: 36415; 82306; 82746; 83550; 84443; 84550; 85025

== ENCOUNTER 2024-01-01 02:08 | Emergency (ER) | payer BC, OTHER ==
[~2024-01-01] VITALS: Ht 167.6 cm; Wt 86.2 kg
[2024-01-01] MEDS ORDERED: ONDANSETRON 4 MG/2 ML VIAL IV ONE (02:15)
[2024-01-01] MEDS ORDERED: ONDANSETRON ODT 4 MG TAB.RAPDIS SL ONE (02:15)
[2024-01-01] MEDS ORDERED: ONDANSETRON 4 MG/2 ML VIAL ONE (02:21)
[2024-01-01] MEDS ORDERED: HYDROMORPHONE 1 MG/1 ML DISP.SYRIN ONE (02:21)
[2024-01-01] MEDS ORDERED: LORAZEPAM 2 MG/1 ML VIAL ONE (02:23)
[2024-01-01 02:29] LABS: BASOPHILS # (AUTO) 0.1 K/UL (0.0-0.2); BASOPHILS % (AUTO) 0.7 % (0.0-2.0); EOSINOPHILS % (AUTO) 0.4 % (0.0-7.0); HEMATOCRIT 38.3 % (31.2-41.9); HEMOGLOBIN 13.5 g/dL (10.9-14.3); LYMPHOCYTES % (AUTO) 40.8 % (20.5-51.5); MEAN CORPUSCULAR HEMOGLOBIN 30.3 uug (24.7-32.8); MEAN CORPUSCULAR HGB CONC 35 g/dL (32.3-35.6); MEAN CORPUSCULAR VOLUME 85.9 fL (75.5-95.3); MONOCYTES # (AUTO) 0.8 K/uL (0.1-1.30); MONOCYTES % (AUTO) 8.2 % (0.0-11.0); NEUTROPHILS # (AUTO) 4.9 K/uL (1.8-8.9); NEUTROPHILS % (AUTO) 49.9 % (38.5-71.5); PLATELET COUNT (AUTO) 314 K/uL (179-408); RED BLOOD CELL COUNT(AUTO) 4.46 MIL/uL (3.63-4.92); RED CELL DISTRIBUTION WIDTH 12.1 % (12.3-17.7); WHITE BLOOD COUNT (AUTO) 9.7 K/uL (3.8-11.8)
[2024-01-01] MEDS: IV NORMAL SALINE 1000 ML BAG IV ONE (02:31)
[2024-01-01] MEDS: LORAZEPAM 2 MG/1 ML VIAL IV ONE (02:35)
[2024-01-01] MEDS: HYDROMORPHONE 1 MG/1 ML DISP.SYRIN IV ONE (02:35)
[2024-01-01] MEDS: ONDANSETRON 4 MG/2 ML VIAL IV ONE (02:35)
[2024-01-01 02:42] LABS: CALCIUM 10.3 mg/dL (8.5-10.1); CARBON DIOXIDE 21 mmol/L (21-32); CHLORIDE 101 mmol/L (98-107); CREATININE 0.8 mg/dL (0.6-1.3); GLUCOSE 140 mg/dL (74-106); LIPASE 189 U/L (16-77); SODIUM SERUM 139 mmol/L (136-145); UREA NITROGEN, BLOOD 13 mg/dL (7-18)
[2024-01-01 02:44] LABS: POTASSIUM 2.8 mmol/L (3.5-5.1)
[2024-01-01 02:51] LABS: ALANINE AMINOTRANSFERASE 53 U/L (14-59); ALBUMIN 4.6 g/dL (3.4-5.0); ALKALINE PHOSPHATASE 64 U/L (50-136); ASPARTATE AMINOTRANSFERASE 12 U/L (15-37); BILIRUBIN,DIRECT 0.2 mg/dL (0.0-0.2); TOTAL PROTEIN, SERUM 8.4 g/dL (6.4-8.2)
[2024-01-01 03:06] LABS: PREGNANCY TEST SERUM QUAN < 1 miul/L (0-6)
[2024-01-01] MEDS ORDERED: IV D5W-0.45% NS +20 KCL 1,000 ML IV ONE (03:41)
[2024-01-01] MEDS: IV D5W-0.45% NS +20 KCL 1,000 ML IV ONE (03:42)
[2024-01-01 06:10] VITALS: BP 125/91; TEMP 97.7; O2SAT 100
== END 2024-01-01 05:30 | disposition home or self-care (01) ==
LOC: ER 02:11
DX: R51.9 Headache, unspecified (principal); R11.0 Nausea; F41.9 Anxiety disorder, unspecified; E87.6 Hypokalemia; I10 Essential (primary) hypertension; K21.9 Gastro-esophageal reflux disease without esophagitis; Z90.49 Acquired absence of other specified parts of digestive tract; Z79.899 Other long term (current) drug therapy; R10.2 Pelvic and perineal pain
CPT/HCPCS: 99285; 96365; 96375; 70450; 96361; 96366; 80076; 80048; 83690; 85025; 84484 ×2; 84702; 36415; 93005; J2060; J2405; J1170; J7040; A4606; A4663

== ENCOUNTER 2024-10-21 07:26 | Emergency (ER) | payer BC, OTHER ==
[~2024-10-21] VITALS: Ht 165.1 cm; Wt 83.9 kg
[2024-10-21] MEDS ORDERED: IV NORMAL SALINE 1000 ML BAG IV ONE (07:30)
[2024-10-21] MEDS ORDERED: ONDANSETRON 4 MG/2 ML VIAL IV ONE (07:30)
[2024-10-21 07:55] VITALS: BP 135/84; TEMP 98.3; O2SAT 99
== END 2024-10-21 07:51 | disposition home or self-care (01) ==
LOC: ER 07:26
DX: R10.13 Epigastric pain (principal); R11.0 Nausea; R19.7 Diarrhea, unspecified; K21.9 Gastro-esophageal reflux disease without esophagitis; Z79.899 Other long term (current) drug therapy; Z90.49 Acquired absence of other specified parts of digestive tract; Z60.2 Problems related to living alone
CPT/HCPCS: A4606; A4663

== ENCOUNTER 2025-01-30 22:20 | Emergency (ER) | payer BC ==
[~2025-01-30] VITALS: Ht 165.1 cm; Wt 81.6 kg
[2025-01-30] MEDS: ACETAMINOPHEN 500 MG TABLET PO ONE (23:33)
[2025-01-30 23:42] VITALS: BP 137/88; TEMP 98; O2SAT 96
== END 2025-01-30 23:30 | disposition home or self-care (01) ==
LOC: ER 22:23
DX: S69.82XA Other specified injuries of left wrist, hand and finger(s), initial encounter (principal); K21.9 Gastro-esophageal reflux disease without esophagitis; Z79.899 Other long term (current) drug therapy; Z60.2 Problems related to living alone; Z90.49 Acquired absence of other specified parts of digestive tract; X50.1XXA Overexertion from prolonged static or awkward postures, initial encounter; Y93.89 Activity, other specified; Y92.89 Other specified places as the place of occurrence of the external cause; Y99.8 Other external cause status
CPT/HCPCS: 73110; A4606; A4663